=== PATIENT | female | born 1955 | race Caucasian/White ===

== ENCOUNTER 2017-12-25 12:45 | Emergency (ER) | payer MEDICAID ==
[~2017-12-25] VITALS: Ht 162.6 cm; Wt 69.3 kg
[2017-12-25] MEDS ORDERED: HALDOL 0.5 MG0.5 MG PO (12:53)
[2017-12-25] MEDS ORDERED: LOPRESSOR25 PO (12:55)
[2017-12-25 13:15] LABS: ABSOLUTE EOSINOPHILS 0.1 thou/uL (0.0-0.7); ABSOLUTE MONOCYTES 0.6 thou/uL (0.0-1.2); ABSOLUTE NEUTROPHILS 3.3 thou/uL (1.6-8.1); BASOPHILS 0.8 %; EOSINOPHILS 1.2 %; HEMATOCRIT 41.1 % (37.0-47.0); HEMOGLOBIN 13.7 gm/dL (12.0-15.0); LYMPHOCYTES 33.9 %; MCH 34.6 pg (26.0-34.0); MCHC 33.2 g/dL (28.0-37.0); MCV 104.3 fL (80.0-100.0); MONOCYTES 9.3 %; NUCLEATED RBCS 0 /100WBC; PLATELET COUNT* 152 thou/uL (150-400); POLYS 54.8 %; RBC 3.95 mil/uL (4.20-5.00); RDW-CV 17.3 % (10.5-14.5)
[2017-12-25 13:25] LABS: ANION GAP 9 mmol/L (7-16); BUN 16 mg/dL (7-18); CALCIUM 8.7 mg/dL (8.5-10.1); CHLORIDE 107 mmol/L (98-107); CO2 28 mmol/L (21-32); CREATININE 0.8 mg/dL (0.6-1.3); GLUCOSE 94 mg/dL (70-99); INR 1.1; POTASSIUM 4.5 mmol/L (3.5-5.1); SODIUM 144 mmol/L (136-145)
[2017-12-25 13:31] LABS: ACETAMINOPHEN < 2 ug/mL (10-30); ALCOHOL 270 mg/dL (<10); SALICYLATE < 2.8 mg/dL (2.8-20.0)
[2017-12-25 13:51] LABS: ALBUMIN 3.3 g/dL (3.4-5.0); ALKALINE PHOSPHATASE 78 U/L (46-116); CK-MB MASS < 0.5 ng/mL (<0.5-3.6); NT-PRO BRAIN NAT PEPTIDE 100 pg/mL (<300); SGOT 20 U/L (15-37); SGPT 16 U/L (30-65); TOTAL BILIRUBIN 0.3 mg/dL (<0.1-1.0); TOTAL PROTEIN 6.3 g/dL (6.4-8.2); TROPONIN-I LEVEL <0.06 ng/mL (<0.06)
[2017-12-25 14:27] VITALS: BP 94/57
--- NOTE | 2017-12-25 15:55 | EKG ---
[place] [address] ELECTROCARDIOGRAM REPORT Name: THIERNO ZULETA [id number] Admission: 12/25/17 Attend Phys: Discharge: 12/25/17 Date of : 59 Report #: [id number] THIS REPORT FOR: //name// [facility] ED Test Date: 2017-12-25 Test Time: 12:55:19 Pat Name: THIERNO ZULETA Department: Room: Gender: F [employer]: MATTY : 1955 Requested By: Abran Saba Order Number: [id number] MD: Christian Garcia Measurements Intervals [place] Rate: 62 P: 99 AK: 185 QRS: 39 QRSD: 93 T: 44 QT: 463 QTc: 471 Interpretive Statements Sinus rhythm No previous ECG available for comparison Electronically Signed On 12-25-2017 15:55:03 CDT by Christian Garcia [email or web address] <ELECTRONICALLY SIGNED> By: Christian Garcia MD, [facility] 12/25/17 1555 1255 1255 Christian Garcia MD, FACC /EPI
== END 2017-12-25 14:31 | disposition home or self-care (01) ==
LOC: M.ERS 12:45
PROVIDERS: Family Medicine
DX: F10.129 Alcohol abuse with intoxication, unspecified (principal); I10 Essential (primary) hypertension; F41.9 Anxiety disorder, unspecified; F32.9 Major depressive disorder, single episode, unspecified; Y90.8 Blood alcohol level of 240 mg/100 ml or more